=== PATIENT | female | born 1995 | race Caucasian/White ===

== ENCOUNTER 2017-11-29 08:18 | Emergency (ER) | payer OTHER ==
--- NOTE | 2017-11-29 08:25 | UC ---
Lower Extremity/Ankle HPI - HPI Summary HPI Summary: 22 yo female presents accompanied by father with complaints of right leg redness. She tells me that over the last 2 days she was outside a lot and was bitten by bugs - thinks one bit her on the right lower leg. Last night developed some redness with mild swelling. This morning redness has spread. Mildly warm and tender. Denies fever, chills, drainage, injury, OBC, smoking, or hx of cancer. - History of Current Complaint Stated Complaint: R LEG COMPLAINT Time Seen by Provider: 11/29/17 08:25 Hx Obtained From: Patient Hx Last Menstrual Period: a week ago Onset/Duration: Sudden Onset Severity Initially: Mild Severity Currently: Mild Pain Intensity: 2 Pain Scale Used: 0-10 Numeric Able to Bear Weight: Yes - Allergies/Home Medications Allergies/Adverse Reactions: Allergies Allergy/AdvReac Type Severity Reaction Status Date / Time No Known Allergies Allergy Unverified 11/29/17 08:41 Home Medications: Home Medications Cholecalciferol TAB* [Vitamin D TAB*] 1,000 unit PO DAILY 11/29/17 [History Confirmed 11/29/17] PMH/Surg Hx/FS Hx/Imm Hx - Additional Past Medical History Additional PMH: None Previously Healthy: Yes - Surgical History Surgical History: None - Family History Known Family History: Positive: None - Social History Occupation: Student Lives: With Family Alcohol Use: None Substance Use Type: None Smoking Status (MU): Never Smoked Tobacco - Immunization History Vaccination Up to Date: Yes Review of Systems Constitutional: Negative Skin: Other - Right leg redness Respiratory: Negative Cardiovascular: Negative Neurovascular: Negative Neurological: Negative Psychological: Negative All Other Systems Reviewed And Are Negative: Yes Physical Exam - Summary Physical Exam Summary: GENERAL: NAD. WDWN. No pain distress. SKIN: Right lower leg: at the lateral aspect of the lower leg there is a 5.0cm area of mild erythema, warmth, and tenderness. No appreciable edema. No streaking, bleeding, or drainage. Negative Issac's sign. NECK: Supple. Nontender. No lymphadenopathy. CHEST: No accessory muscle use. Breathing comfortably and in no distress. CV: Pulses intact NEURO: Alert. CN II-XII grossly intact. PSYCH: Age appropriate behavior. Triage Information Reviewed: Yes Vital Signs: Vital Signs: Temp Pulse Resp BP Pulse Ox 97.4 F 73 16 106/68 100 11/29/17 08:38 11/29/17 08:38 11/29/17 08:38 11/29/17 08:38 11/29/17 08:38 Vital Signs Reviewed: Yes Lower Extremity Course/Dx - Course Course Of Treatment: Right leg cellulitis - Differential Dx/Diagnosis Provider Diagnoses: Right lower leg cellulitis Discharge - Sign-Out/Discharge Documenting (check all that apply): Patient Departure - Discharge Plan Condition: Stable Disposition: HOME Prescriptions: Cephalexin CAP* [Keflex CAP*] 500 mg PO BID #[id number] Patient Education Materials: Cellulitis (ED) Referrals: Courtney Lynn NP [Primary Care Provider] - Additional Instructions: If you develop a fever, shortness of breath, chest pain, new or worsening symptoms - please call your PCP or go to the ED. - Billing Disposition and Condition Condition: STABLE Disposition: Home
[2017-11-29 08:41] VITALS: BP 106/68
== END 2017-11-29 08:45 | disposition home or self-care (01) ==
LOC: UCEAST 08:18
DX: L03.115 Cellulitis of right lower limb (principal)
CPT/HCPCS: 99212; G0463